=== PATIENT | female | born 2005 | race Hispanic/Latino ===

== ENCOUNTER → 2024-05-11 12:48 | Outpatient (CLI) | payer OTHER, MEDICAID, SELFPAY ==
--- NOTE | 2024-05-11 12:51 | DI.US.S_ITS ---
PROCEDURE: US OB >= 14 WEEKS FETUS INDICATIONS: anatomy, late to care OUTSIDE/PRIOR DATING DATA: Last menstrual period (LMP): 11/10/2023. LMP-based estimated date of delivery (RAYNA): 08/16/2024. First dating scan (date and location): 05/11/2024. Estimated date of delivery (RAYNA) from first dating scan: 08/06/2024. The calculations are made using the clinical RAYNA of 08/16/2024. TECHNIQUE: Real-time scanning was performed of the fetus, with image documentation and biometric measurements. Endovaginal scanning: Not performed COMPARISON: None. FINDINGS: General: A single living intrauterine gestation is present. Presentation: Breech. Placenta: Placental position is anterior, without previa. Small placental Bang. Amniotic fluid index: 12.3 cm, normal range is 5-24 cm. Single deepest vertical pocket is 6 cm. heart rate: 160 beats per minute. Maternal cervical canal: 4.5 cm long. Normal lower limit is 2.5 cm. biometrics: Biparietal diameter: 6.7 cm, 26 weeks 6 days. 65th percentile Head circumference: 25.4 cm, 27 weeks 4 days. 75th percentile Abdominal circumference: 23.9 cm, 28 weeks 2 days. 93rd percentile Femur length: 5.2 cm, 27 weeks 4 days. 77th percentile Clinically estimated gestational age: 26 weeks 1 day Composite gestational age from present scan: 27 weeks 4 days Estimated weight and percentile: 1134 g, 96 percentile. Anatomic survey: Neuro: Ventricles are non-dilated at less than 10 mm. Cisterna magna is normal at 3-11 mm. Cerebellum is normal in size and morphology. Nuchal skin fold: Normal at less than 6 mm between 14-21 weeks gestational age. Face: Nose and lips, facial profile are normal. Spine: No evidence for spina bifida. Heart: 4-chambered heart is present, with normal ventricular outflow tracts. Diaphragm: Diaphragm is intact. Stomach: Left-sided stomach is present. Kidneys: No hydronephrosis. Normal is less than 5 mm in 2nd trimester, less than 7 mm in 3rd trimester. Cord: 3-vessel cord has orthotopic insertion. Umbilical artery is patent. Bladder: Normal in size. Extremities: All 4 extremities identified. IMPRESSION: 1. Mullins living intrauterine at 27 weeks 4 days based on today's ultrasound. Fetus is in the 96 percentile for weight. The abdominal circumference is in the 93rd percentile. Recommend clinical correlation. This raises the possibility of macrosomia. 2. Normal placenta and amniotic fluid. 3. Normal and complete anatomic survey. We strive to produce accurate, complete, and clear reports of imaging services. To assist us in improving patient care, this report was composed using standard report templates and voice recognition software. Therefore, it may contain abnormal punctuation, insertions and/or omissions. Occasional wrong-word or sound-alike substitutions may occur. Though we review the report and make efforts to correct it, we do recommend that the report be read carefully in proper context to recognize any text inaccuracies. Dictated by: Norman Wright M.D. on 05/11/2024 at 15:57 Approved by: Norman Wright M.D. on 05/11/2024 at 16:04
== END ==
LOC: US 12:50
PROVIDERS: PCP Family Medicine; Referring Provider Family Medicine; Visit Provider Family Medicine
DX: O09.32 Supervision of pregnancy with insufficient antenatal care, second trimester (principal); Z3A.27 27 weeks gestation of pregnancy
CPT/HCPCS: 76811

== ENCOUNTER → 2024-05-15 12:44 | Outpatient (CLI) | payer OTHER, MEDICAID, SELFPAY ==
[2024-05-15 14:51] LABS: Natera Collection Specimen Collected
[2024-05-15 14:52] LABS: Appearance Urine UA SL CLOUDY; Bilirubin Urine UA NEGATIVE (NEGATIVE); Color Urine UA YELLOW; Glucose Urine UA NEGATIVE (Negative); Ketones Urine UA NEGATIVE (NEGATIVE); Leukocyte Esterase Urine UA NEGATIVE (NEGATIVE); Nitrite Urine UA NEGATIVE (Negative); Occult Blood Urine UA NEGATIVE (Negative); Protein Urine UA NEGATIVE (Negative); Specific Gravity Urine UA 1.025 (1.000-1.035); Urobilinogen Urine UA 0.2 E.U./dL (0.2)
[2024-05-15 14:55] LABS: Hemoglobin A1C% w Est Avg Glu 4.8 % (4.0-6.0)
[2024-05-15 14:57] LABS: Add Manual Diff / Slide Review NO; Basophils Absolute Auto 0 /uL (0-100); Basophils Percent Auto 0.3 % (0-2); Eosinophils Absolute Auto 100 /uL (0-450); Eosinophils Percent Auto 0.8 % (2-4); Hematocrit 31.7 % (36-46); Hemoglobin 11.1 g/dL (12.0-16.0); Lymphocytes Absolute Auto 1300 /uL (1100-4500); Mean Corpuscular HGB Conc 34.9 % (30-36); Mean Corpuscular Hemoglobin 29.1 PG (26-34); Mean Corpuscular Volume 83.2 fL (80-100); Monocytes Absolute Auto 200 /uL (0-900); Monocytes Percent Auto 2.9 % (3-14); Neutrophils Absolute Auto 6100 /uL (1500-7000); Platelet Count 284 X10^3/uL (150-400); Red Blood Cell Count 3.81 X10^6/uL (4.0-5.2); Red Cell Distribution Width 13.1 % (11.6-14.8); White Blood Cell Count 7.8 X10^3/uL (4.5-11.0)
[2024-05-15 15:16] LABS: GTT (PREG) 1 Hour PP 50gm Dose 127 mg/dL (76-139)
[2024-05-15 15:52] LABS: Hepatitis B Surface Antigen NEGATIVE s/c (NEGATIVE); Rubella Antibody IgG 66.3 IU/mL (>15)
[2024-05-15 16:17] LABS: HIV 1 & 2 Ab/Ag 4th Gen Combo NEGATIVE (NEGATIVE); Hep C Virus Ab w/Reflex Quant NEGATIVE s/c (NEGATIVE)
[2024-05-17 05:14] LABS: RPR Screen Non Reactive (Non Reactive)
[2024-05-17 10:10] LABS: Varicella IgG Antibody Reactive (Non Reactive)
== END ==
PROVIDERS: PCP Family Medicine; Referring Provider Family Medicine; Visit Provider Family Medicine
DX: O99.210 Obesity complicating pregnancy, unspecified trimester (principal)
CPT/HCPCS: 36415; 80055; 81003; 82950; 83036; 86787; 86803; 86850; 86900; 86901; 87086; 87389

== ENCOUNTER 2024-06-17 21:43 | Outpatient (CLI) | payer OTHER, MEDICAID, SELFPAY | END 2024-06-17 23:00 | disposition home or self-care (01) | LOC: LABOR 22:00 → OB 06-19 11:12 | PROVIDERS: PCP Family Medicine; Referring Provider Family Medicine; Visit Provider Family Medicine | DX: O26.893 Other specified pregnancy related conditions, third trimester (principal); R10.9 Unspecified abdominal pain; Z3A.31 31 weeks gestation of pregnancy | CPT/HCPCS: 59025; G0378; G0379 ==

== ENCOUNTER → 2024-06-26 11:09 | Outpatient (CLI) | payer OTHER, MEDICAID, SELFPAY ==
[2024-06-26 11:56] LABS: Add Manual Diff / Slide Review NO; Basophils Absolute Auto 0 /uL (0-100); Basophils Percent Auto 0.2 % (0-2); Eosinophils Absolute Auto 100 /uL (0-450); Eosinophils Percent Auto 1.6 % (2-4); Hematocrit 32.4 % (36-46); Hemoglobin 11.2 g/dL (12.0-16.0); Lymphocytes Absolute Auto 1400 /uL (1100-4500); Lymphocytes Percent Auto 16.8 % (25-40); Mean Corpuscular HGB Conc 34.5 % (30-36); Mean Corpuscular Hemoglobin 27.4 PG (26-34); Mean Corpuscular Volume 79.6 fL (80-100); Monocytes Absolute Auto 600 /uL (0-900); Monocytes Percent Auto 6.5 % (3-14); Neutrophils Absolute Auto 6400 /uL (1500-7000); Neutrophils Percent Auto 74.9 % (50-75); Platelet Count 320 X10^3/uL (150-400); Red Blood Cell Count 4.06 X10^6/uL (4.0-5.2); Red Cell Distribution Width 13.7 % (11.6-14.8); White Blood Cell Count 8.5 X10^3/uL (4.5-11.0)
[2024-06-26 12:27] LABS: Alanine Aminotransferase 12 IU/L (<35); Albumin 3.2 g/dL (3.5-5.0); Alkaline Phosphatase 131 U/L (38-126); Aspartate Aminotransferase 19 IU/L (14-36); BUN Creatinine Ratio 5.9 (6-22); Bilirubin Total 0.4 mg/dL (0.2-1.3); Blood Urea Nitrogen 3 mg/dL (7-17); Calcium 9.2 mg/dL (8.4-10.2); Carbon Dioxide 21 mmol/L (22-32); Chloride 108 mmol/L (98-107); Estimated Glomerular Filt Rate > 60 mL/min (>60); Globulin 3.1 g/dL (1.7-4.1); Glucose 94 mg/dL (70-100); HEMOLYSIS < 15 (0-50); Potassium 4.3 mmol/L (3.4-5.1); Sodium 134 mmol/L (137-145); Total Protein 6.3 g/dL (6.3-8.2)
[2024-06-26 14:18] LABS: Creatinine Urine Random 55.29 mg/dL; Protein (Total) Urine Random 14 mg/dL (0-12); Protein Creatinine Ratio Urine 0.25 GRAM/24H
== END ==
PROVIDERS: PCP Family Medicine; Referring Provider Family Medicine; Visit Provider Family Medicine
DX: O16.3 Unspecified maternal hypertension, third trimester (principal); Z3A.32 32 weeks gestation of pregnancy
CPT/HCPCS: 36415; 80053; 82570; 84156; 85025

== ENCOUNTER → 2024-07-18 12:04 | Outpatient (CLI) | payer OTHER, MEDICAID, SELFPAY ==
--- NOTE | 2024-07-18 12:05 | DI.US.S_ITS ---
PROCEDURE: US OB LIMITED INDICATIONS: EFW OUTSIDE/PRIOR DATING DATA: Last menstrual period (LMP): November 10, 2023. LMP-based estimated date of delivery (RAYNA): August 16, 2024. First dating scan (date and location): Not available. Estimated date of delivery (RAYNA) from first dating scan: August 16, 2024. The calculations are made using the May 11, 2024 ultrasound RAYNA of August 16, 2024. TECHNIQUE: Real-time scanning was performed of the fetus, with image documentation and biometric measurements. Endovaginal scanning: Not performed COMPARISON: None. FINDINGS: General: A single living intrauterine gestation is present. Presentation: Vertex. Placenta: Placental position is anterior , without previa. Normal >2 cm. Low lying is <2 cm to the edge. Previa covers the internal os. Amniotic fluid index: 18.7 cm, normal range is 5-24 cm. Single deepest vertical pocket is 5.5 cm. heart rate: 152 beats per minute. biometrics: Biparietal diameter: 8.7 cm, 35 weeks, 1 day Head circumference: 32.5 cm, 36 weeks 6 days Abdominal circumference: 31.3 cm, 35 weeks 1 day Femur length: 6.9 cm, 35 weeks 4 days Clinically estimated gestational age: 35 weeks 6 days Composite gestational age from present scan: 35 weeks 5 days Estimated weight and percentile: 2688 g, 39th percentile Other: Not applicable. IMPRESSION: 1. Single live intrauterine gestation with a composite gestational age of 35 weeks, 5 days which is concordant with the previous scan. 2. Estimated weight percentile of 39%. We strive to produce accurate, complete, and clear reports of imaging services. To assist us in improving patient care, this report was composed using standard report templates and voice recognition software. Therefore, it may contain abnormal punctuation, insertions and/or omissions. Occasional wrong-word or sound-alike substitutions may occur. Though we review the report and make efforts to correct it, we do recommend that the report be read carefully in proper context to recognize any text inaccuracies. Dictated by: Pat Espinoza M.D. on 07/18/2024 at 13:21 Approved by: Pat Espinoza M.D. on 07/18/2024 at 13:24
== END ==
LOC: US 12:04
PROVIDERS: PCP Family Medicine; Referring Provider Family Medicine; Visit Provider Family Medicine
DX: Z34.03 Encounter for supervision of normal first pregnancy, third trimester (principal); Z3A.35 35 weeks gestation of pregnancy
CPT/HCPCS: 76815

== ENCOUNTER → 2024-07-20 07:47 | Outpatient (CLI) | payer OTHER, MEDICAID, SELFPAY ==
[2024-07-21 09:02] LABS: Strep Grp B PCR NEG for Grp B Strep
== END ==
PROVIDERS: PCP Family Medicine; Visit Provider Family Medicine
DX: Z36.85 Encounter for antenatal screening for Streptococcus B (principal)
CPT/HCPCS: 87653

== ENCOUNTER 2024-07-31 12:19 | Observation (INO) | payer OTHER, SELFPAY | END 2024-07-31 12:55 | disposition home or self-care (01) | PROVIDERS: Admitting Provider Family Medicine; PCP Family Medicine; Referring Provider Family Medicine; Visit Provider Family Medicine | DX: O36.8130 Decreased fetal movements, third trimester, not applicable or unspecified (principal); Z3A.37 37 weeks gestation of pregnancy | CPT/HCPCS: 59025; G0378; G0379 ==

== ENCOUNTER 2024-08-02 19:36 | Inpatient (IN) | payer OTHER, SELFPAY ==
[2024-08-02 21:33] LABS: Add Manual Diff / Slide Review NO; Basophils Absolute Auto 0 /uL (0-100); Basophils Percent Auto 0.2 % (0-2); Eosinophils Absolute Auto 100 /uL (0-450); Hemoglobin 10.6 g/dL (12.0-16.0); Lymphocytes Absolute Auto 1600 /uL (1100-4500); Mean Corpuscular HGB Conc 34.1 % (30-36); Mean Corpuscular Hemoglobin 25.5 PG (26-34); Mean Corpuscular Volume 74.6 fL (80-100); Monocytes Absolute Auto 400 /uL (0-900); Monocytes Percent Auto 4.3 % (3-14); Neutrophils Absolute Auto 7300 /uL (1500-7000); Neutrophils Percent Auto 77.5 % (50-75); Platelet Count 377 X10^3/uL (150-400); Red Blood Cell Count 4.15 X10^6/uL (4.0-5.2); Red Cell Distribution Width 15.7 % (11.6-14.8); White Blood Cell Count 9.4 X10^3/uL (4.5-11.0)
[2024-08-02 21:41] LABS: Alanine Aminotransferase 13 IU/L (<35); Albumin 3.2 g/dL (3.5-5.0); Albumin Globulin Ratio 0.9 (1.0-2.8); Alkaline Phosphatase 170 U/L (38-126); Aspartate Aminotransferase 22 IU/L (14-36); BUN Creatinine Ratio 14.3 (6-22); Bilirubin Total 0.5 mg/dL (0.2-1.3); Blood Urea Nitrogen 8 mg/dL (7-17); Calcium 8.7 mg/dL (8.4-10.2); Carbon Dioxide 21 mmol/L (22-32); Chloride 107 mmol/L (98-107); Estimated Glomerular Filt Rate > 60 mL/min (>60); Globulin 3.7 g/dL (1.7-4.1); Glucose 108 mg/dL (70-100); HEMOLYSIS < 15 (0-50); Potassium 3.9 mmol/L (3.4-5.1); Sodium 131 mmol/L (137-145); Total Protein 6.9 g/dL (6.3-8.2)
[2024-08-02] MEDS: miSOPROStoL 25 MCG TABLET PO (21:45)
[2024-08-03] MEDS: miSOPROStoL 25 MCG TABLET 50 MCG PO ×4 (01:50→14:30)
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
[2024-08-03] MEDS: DINOPROSTONE VAG (CERVIDIL) 10 MG VAG (17:39)
--- NOTE | 2024-08-03 19:03 | PM.OBPNLAB ---
Date/Time Date Patient Seen: 08/03/24 Time Patient Seen: 13:00 Pain Control Pain control: tolerating well Comments: doing well, noting some cramping and discomfort but it is mild so far per RN. PT sleeping currently Pelvic Exam Dilation (cm): 0 Effacement (%): 0 station: -4 Amniotic membrane status: Intact Comments: from check this AM, not repeated due to pt sleeping Contractions Date/Time contractions began: 08/03/25, irregular contractions Contractions on admission: none Monitor mode: External Contraction pattern: Irregular Contraction intensity: Mild Status status: Category ll (rare, occasional late deceleration ) Heart Rate Baseline: 120 Monitor Accelerations: Present Monitor Decelerations: Late (rare) Monitor Variability: Moderate Assessment and Plan Assessment: induction ongoing Plan: continuous present management Comments: 19 yo G1 currently admitted for mIOL for gHTN. BPs normotensive. Pt noting that she has not been taking Labetolol for the last 2 weeks so will hold for now. IV PRN is availbale for severe range pressures. minimal contractions, irregular and mild. Pt sleeping comfortable, continue oral miso
--- NOTE | 2024-08-03 19:07 | PM.OBPNLAB ---
Date/Time Date Patient Seen: 08/03/24 Time Patient Seen: 17:07 Pain Control Pain control: tolerating well Comments: stable from this AM, still having some cramping. Contractions showing occasionally on the monitor, sometimes she is able to feel them and other times she is not. Pelvic Exam Dilation (cm): 0 Effacement (%): 0 station: -4 Amniotic membrane status: Intact Comments: cervix soft and mid position Contractions Contractions on admission: none Monitor mode: External Contraction pattern: Irregular Contraction intensity: Mild Status status: Category ll (rare, occasional late deceleration ) Heart Rate Baseline: 120 Monitor Accelerations: Present Monitor Decelerations: Variable (rare) Monitor Variability: Moderate Assessment and Plan Assessment: induction ongoing Comments: 19 yo G1 admitted for mIOL for gHTN at 38w1d, doing well, tolerating miso well. Now completing 24 hours of Miso, will transition to cervadil. Placed without difficulty. Plan for removal in 12 hours, will attempt to place henley at that time. SVE closed/thick/high/soft and mid position FHT with occassional variable decelerations, overall Category 1 though continuous monitoring
[2024-08-04] MEDS: miSOPROStoL 25 MCG TABLET 50 MCG PO ×2 (07:57→13:48)
--- NOTE | 2024-08-04 09:27 | PM.OBPNLAB ---
Date/Time Date Patient Seen: 08/04/24 Time Patient Seen: 07:30 Pain Control Pain control: tolerating well Comments: got more uncomfortable overnight with Cervadil, removed at 12 hours this AM at 5:45. contractions slowing since removal. Discussed henley and she doesnt feel ready. She would like to reconsider in a few hours. Pelvic Exam Effacement (%): 0 station: -4 Amniotic membrane status: Intact Contractions Contractions on admission: irregular Monitor mode: External Contraction pattern: Irregular Contraction intensity: Mild Status Heart Rate Baseline: 120 Monitor Accelerations: Present Monitor Decelerations: Absent Monitor Variability: Moderate Assessment and Plan Assessment: induction ongoing Comments: 19 yo G1 admitted for mIOL for gHTN at 38w1d, doing well. Cervadil removed a little over an hour ago and contractyions spacing slightly. Discussed henley vs return to miso and pt prefers miso, will give miso x 1 more dose then reassess for henley. FHT reassuring overnight. BPs normotensive
--- NOTE | 2024-08-04 13:00 | PM.OBPNLAB ---
Date/Time Date Patient Seen: 08/04/24 Time Patient Seen: 13:00 Pain Control Pain control: tolerating well Comments: felling more cramping, overall doing well. open to henley balloon placement Pelvic Exam Dilation (cm): 1 Effacement (%): 10 station: -3 Amniotic membrane status: Intact Contractions Contractions on admission: irregular Monitor mode: External Contraction pattern: Irregular Contraction intensity: Mild Status status: Category l Heart Rate Baseline: 130 Monitor Accelerations: Present Monitor Decelerations: Absent Monitor Variability: Moderate Assessment and Plan Assessment: induction ongoing Comments: 19 yo G1 admitted for mIOL for gHTN at 38w2d. Henley placed at 13:32 with some discomfort. Pt required fentanyl for placement. 60cc sterile saline placed in baloon. During placement, cervical dilation 1cm at start and by the end of placement, stretched to 3cm. Continue with henley balloon. Once falls out, can start pitocin and consider ROM if able to do so safely. FHT reassuring through placement.
[2024-08-04] MEDS: fentaNYL 100 MCG/2 ML INJ IV ×3 (13:23→15:14)
[2024-08-04] MEDS: LACTATED RINGERS 1,000 ML 100 ML IV ×2 (17:25→18:49)
--- NOTE | 2024-08-04 18:17 | PM.AN.REGBLK ---
Regional Block Pre-procedure Procedure: Continuous Lumbar Epidural for L&D Attending OB provider: Amanda Ko PMH/ROS narrative: Patient , 38 2/7 weeks, IOL for GHTN. ROS otherwise negative. PSH/Anesthesia history narrative: Negative, no family hx of anesthesia issues Exam narrative: Airway Mall I, good neck ROM. ASA Class: III Labs: Hct 31.0 % (36-46) L 08/02/24 21:10 Plt Count 377 X10^3/uL (150-400) 08/02/24 21:10 Medications: Current Medications Generic Name Dose Route Start Last Admin Trade Name Freq PRN Reason Stop Dose Admin Carboprost Tromethamine 250 mcg 08/02/24 19:51 Carboprost 250 Mcg/Ml Ampul IM Q90M PRN Bleeding Fentanyl 100 mcg 08/04/24 12:59 08/04/24 15:14 Fentanyl 100 Mcg/2 Ml Inj 1 mcg/kg (100 mcg) 100 mcg IV Administration PRN PRN Pain, Moderate (4-6) Oxytocin/Lactated Ringer's 30 unit in 500 mls @ 200 mls/hr 08/02/24 19:51 Oxytocin Premix IV CONT PRN Bleeding Protocol Tranexamic Acid 1,000 mg/ 100 mls @ 600 mls/hr 08/02/24 19:51 Sodium Chloride IV NOW PRN Bleeding Labetalol HCl 20 mg 08/02/24 21:36 Labetalol 20 Mg/4 Ml Syringe IV Q4HR PRN Heart Rate- High Lidocaine HCl 20 ml 08/02/24 19:51 Lidocaine 1% 20 Ml INJ INTRA-OP PRN Post Delivery Methylergonovine Maleate 0.2 mg 08/02/24 19:51 Methylergonovine 0.2 Mg Tablet PO Q6HR PRN Heavy Bleeding Methylergonovine Maleate 0.2 mg 08/02/24 19:51 Methylergonovine 0.2 Mg/Ml Vial IM NOW PRN Bleeding Mineral Oil 30 ml 08/02/24 19:51 Mineral Oil 30 Ml Udc TOP PRN PRN Version Misoprostol 800 mcg 08/02/24 19:51 Misoprostol 200 Mcg Tablet [place] NOW PRN Bleeding Misoprostol 400 mcg 08/02/24 19:51 Misoprostol 200 Mcg Tablet SL NOW PRN Bleeding Misoprostol 50 mcg 08/03/24 01:30 08/04/24 13:48 Misoprostol 25 Mcg Tablet PO 50 mcg QID MACY Administration Naloxone HCl 0.2 mg 08/02/24 19:51 Naloxone 0.4 Mg/Ml Vial IV Q2MIN PRN Opiate Reversal Oxytocin 10 unit 08/02/24 19:51 Oxytocin 10 Unit/Ml Vial IM NOW PRN Bleeding Allergies: Allergies Allergy/AdvReac Type Severity Reaction Status Date / Time No Known Drug Allergies Allergy Unverified 07/31/24 11:28 Procedure Insertion date: 08/04/24 Insertion time: 17:32 Prep/Local: 1% lidocaine (chlorhexidine skin prep, dry x 3min) Interspace: L4-5. First attempt EVENS 8cm. Heme w/ aspiration after cath insert, removed Patient position: sitting Needle: 17 gauge Tuohy Loss of resistance with: saline EVENS at (cm): 8 Catheter placed at SKIN (cm): 15 Catheter in SPACE (cm): 7 Sensory level: T10 Insertion: No CSF, No Blood, No Paresthesia with insertion, No Paresthesia with injection and No Test dose reaction Initial Medications TEST DOSE time: 17:51 Infusion Initial rate (mL/hr): 10 Subsequent interventions: 08/05: 1115-5cc 0.25% bupiv bolus, hob 30 degrees. Post-procedure Anesthesia date START: 08/04/24 Anesthesia time START: 17:32 Anesthesia date END: 08/05/24 Anesthesia time END: 15:52 Post-procedure Anesthesia Assessment: Yes CV function: HR/BP stable, Yes Resp function: RR/sat/airway adequate, Yes Post-op hydration adequate, Yes Pain control adequate, Yes Nausea & vomiting absent, Yes Temperature > 36 C, Yes Mental status appropriate and Yes Anesthesia complications
[2024-08-05] MEDS: OXYTOCIN PREMIX 30 UNIT/500 ML PLAST..BAG IV (01:54)
[2024-08-05] MEDS: FENT 2MCG/ML BUPIV 0.125% EPI 200 MCG/100 ML PLAST..BAG 10 MCG EPIDURAL ×2 (04:18→11:54)
[2024-08-05] MEDS: LACTATED RINGERS 1,000 ML 100 ML IV (04:31)
--- NOTE | 2024-08-05 08:33 | PM.OBPNLAB ---
Date/Time Date Patient Seen: 08/05/24 Time Patient Seen: 08:15 Pain Control Pain control: epidural Comments: Tolerating pain well with epidural in place. Feeling contractions still. Overnight SVE /-3 after henley balloon placement. No fluid leakage Pelvic Exam Dilation (cm): 4 Effacement (%): 60 station: -3 Amniotic membrane status: Bulging Comments: AROM at 820, during a contraction wtih fundal pressure, clear fluid, FHT reassuring following ROM Contractions Contractions on admission: irregular Monitor mode: External Pitocin rate (mU/min): 10 Contraction pattern: Irregular Contraction intensity: Mild Status status: Category l Heart Rate Baseline: 130 Monitor Accelerations: Present Monitor Decelerations: Absent Monitor Variability: Moderate (short period of minimal for a few minutes, resolved with position changes ) Assessment and Plan Assessment: induction ongoing Plan: begin patient augmentation Comments: 19 yo G1 admitted for mIOL for gHTN at 38w3d. Henley placed at 13:32 yesterday, removed at 01:30 am this morning with minimal cervical change. On check this AM, /-3, very soft and stretchy. AROM completed wtih clear fluid at 8:20, FHT reassuring following ROM. head asynclitic on exam. continue wtih pitocin augmentation and position changes to help with descent. Epidural functioning well
[2024-08-05] MEDS: ONDANSETRON 4 MG/2 ML INJ IV (11:54)
--- NOTE | 2024-08-05 12:22 | PM.OBPNLAB ---
Date/Time Date Patient Seen: 08/05/24 Time Patient Seen: 12:22 Pain Control Pain control: epidural Pelvic Exam Dilation (cm): 10 Effacement (%): 100 station: +1 Amniotic membrane status: Bulging Contractions Contractions on admission: irregular Monitor mode: External Pitocin rate (mU/min): 12 Contraction pattern: Irregular Contraction intensity: Mild Status status: Category l Heart Rate Baseline: 130 Monitor Accelerations: Present Monitor Decelerations: Early Monitor Variability: Moderate Assessment and Plan Assessment: active labor Plan: continuous present management Comments: 19 yo G1 at 38w3d admitted for mIOL for gHTN, tolerating induction well. No complete and + 1.Pt does have a prominent pubic symphisis on exam and first US showing elevated AC and EFW but this resolved on f/up US and EFW 39%ile on 35 wk growth scan. Plan for extra RN at delivery and stools at bedside for dystocia maneuvers if needed. FHT reactive. TOCO not traveling well and pt having some difficulty identifying contractions. Will start practice pushing.
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
[2024-08-05] MEDS: DERMOPLAST SPRAY 20% 60 ML 1 SPRAY TOP (20:06)
[2024-08-05] MEDS: LANOLIN OINT 7 GM 1 APPLIC TOP (20:07)
[2024-08-05] MEDS: WITCH HAZEL/GLYCERIN PADS 1 EACH TOP (20:07)
[2024-08-05] MEDS: ACETAMINOPHEN 325 MG TABLET 650 MG PO (20:07)
[2024-08-05] MEDS: IBUPROFEN 600 MG TABLET PO (20:08)
[2024-08-06] MEDS: ACETAMINOPHEN 325 MG TABLET 650 MG PO (02:13)
[2024-08-06] MEDS: IBUPROFEN 600 MG TABLET PO (02:13)
[2024-08-06 05:34] LABS: Add Manual Diff / Slide Review NO; Basophils Absolute Auto 0 /uL (0-100); Basophils Percent Auto 0.2 % (0-2); Eosinophils Absolute Auto 200 /uL (0-450); Eosinophils Percent Auto 1.6 % (2-4); Hematocrit 26.2 % (36-46); Lymphocytes Absolute Auto 2300 /uL (1100-4500); Lymphocytes Percent Auto 14.2 % (25-40); Mean Corpuscular HGB Conc 34.3 % (30-36); Mean Corpuscular Hemoglobin 25.5 PG (26-34); Mean Corpuscular Volume 74.2 fL (80-100); Monocytes Absolute Auto 900 /uL (0-900); Monocytes Percent Auto 5.8 % (3-14); Neutrophils Absolute Auto 12500 /uL (1500-7000); Neutrophils Percent Auto 78.2 % (50-75); Platelet Count 280 X10^3/uL (150-400); Red Blood Cell Count 3.53 X10^6/uL (4.0-5.2); Red Cell Distribution Width 16.1 % (11.6-14.8)
[2024-08-06] MEDS: PRENATAL VIT,CALC/IRON/FOLIC 1 TABLET 1 TAB PO (10:17)
[2024-08-06] MEDS: FERROUS SULFATE 325 MG TABLET PO (10:17)
[2024-08-06] MEDS: DOCUSATE 100 MG CAPSULE PO (10:17)
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
== END 2024-08-06 19:05 | disposition home or self-care (01) | DRG 560 ==
PROVIDERS: Admitting Provider Family Medicine; PCP Family Medicine; Referring Provider Family Medicine; Visit Provider Family Medicine
DX: O13.4 Gestational [pregnancy-induced] hypertension without significant proteinuria, complicating childbirth (principal); Z37.0 Single live birth; O76 Abnormality in fetal heart rate and rhythm complicating labor and delivery; O70.0 First degree perineal laceration during delivery; Z3A.38 38 weeks gestation of pregnancy
CPT/HCPCS: 36415; 59050; 59200; 59410; 80053; 85025; 86850; 86900; 86901; G0379; J2405; J2590; J3010